=== PATIENT | male | born 1985 | race Caucasian/White ===

== ENCOUNTER 2022-12-02 17:11 | Emergency (ER) | payer OTHER ==
[2022-12-02] MEDS ORDERED: Lidocaine 1% 20 ML MDV INJECT ONE (17:19)
[2022-12-02] MEDS ORDERED: Diphtheria,Pertussis(Acell),Tetanus Vaccine 0.5 ML Syringe IM ONE (17:33)
[2022-12-02] MEDS: Lidocaine 1% 20 ML MDV ONE (17:41)
[2022-12-02 18:00] VITALS: BP 154/102; PULSE 88
[2022-12-04] MEDS: Lidocaine 1% 20 ML MDV ONE (12:19)
== END 2022-12-02 18:00 | disposition home or self-care (01) ==
LOC: KA.ED 17:11
DX: S61.411A Laceration without foreign body of right hand, initial encounter (principal); Z23 Encounter for immunization; W26.8XXA Contact with other sharp object(s), not elsewhere classified, initial encounter
CPT/HCPCS: 12001; 90471; 90715; 99282-25; 99283; J3490